=== PATIENT | female | born 1960 | race Caucasian/White ===

== ENCOUNTER → 2018-10-09 | Outpatient (CLI) | payer OTHER | LOC: M.RAD 15:10 | DX: Z12.31 Encounter for screening mammogram for malignant neoplasm of breast (principal) ==

== ENCOUNTER 2019-02-16 09:27 | Emergency (ER) | payer OTHER ==
[~2019-02-16] VITALS: Ht 172.7 cm; Wt 108.9 kg
[2019-02-16] MEDS ORDERED: DICLOFENAC SODI75 MG PO (09:44)
[2019-02-16] MEDS ORDERED: LEXAPRO 10 MG T10 M2 PO (09:44)
[2019-02-16] MEDS ORDERED: OMEPRAZOLE 20 M20 M1 PO (09:45)
[2019-02-16] MEDS ORDERED: AMITRIPTYLINE H10 M3 PO (09:45)
[2019-02-16] MEDS ORDERED: NORCO 5-325 TA1 EAC1 PO (12:10)
[2019-02-16] MEDS ORDERED: CYCLOBENZAPRINE5 MG PO (12:10)
[2019-02-16 12:37] VITALS: BP 181/106
[2019-03-12] MEDS ORDERED: FLEXERIL PO (10:44)
[2019-03-12] MEDS ORDERED: ZOVIRAX200 MG PO (14:49)
[2019-03-12] MEDS ORDERED: IBUPROFEN 800800 M1 PO (14:49)
== END 2019-02-16 12:41 | disposition home or self-care (01) ==
LOC: M.ERS 09:27
DX: S80.02XA Contusion of left knee, initial encounter (principal); M79.89 Other specified soft tissue disorders; M54.6 Pain in thoracic spine; M54.32 Sciatica, left side; F32.9 Major depressive disorder, single episode, unspecified; M19.90 Unspecified osteoarthritis, unspecified site; Z90.710 Acquired absence of both cervix and uterus; W01.0XXA Fall on same level from slipping, tripping and stumbling without subsequent striking against object, initial encounter; Y93.89 Activity, other specified; Y92.89 Other specified places as the place of occurrence of the external cause; Y99.8 Other external cause status

== ENCOUNTER → 2019-02-26 | Outpatient (CLI) | payer OTHER ==
[~2019-02-26] MED LIST: AMITRIPTYLINE H10 M3 PO; CYCLOBENZAPRINE5 MG PO; DICLOFENAC SODI75 MG PO; FLEXERIL PO; IBUPROFEN 800800 M1 PO; LEXAPRO 10 MG T10 M2 PO; NORCO 5-325 TA1 EAC1 PO; OMEPRAZOLE 20 M20 M1 PO; ZOVIRAX200 MG PO
== END ==
LOC: M.MRI 02-20 11:02
DX: M47.816 Spondylosis without myelopathy or radiculopathy, lumbar region (principal); M48.061 Spinal stenosis, lumbar region without neurogenic claudication; M54.6 Pain in thoracic spine; M54.42 Lumbago with sciatica, left side

== ENCOUNTER → 2019-03-12 | Outpatient (CLI) | payer OTHER ==
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
== END ==
LOC: M.PC 04:58
DX: M54.5 Low back pain (principal); R53.1 Weakness; F41.9 Anxiety disorder, unspecified; M19.90 Unspecified osteoarthritis, unspecified site; K21.9 Gastro-esophageal reflux disease without esophagitis; E66.9 Obesity, unspecified; Z90.49 Acquired absence of other specified parts of digestive tract; Z90.710 Acquired absence of both cervix and uterus

== ENCOUNTER → 2019-05-12 | Outpatient (CLI) | payer OTHER ==
--- NOTE | ~2019-05-12 | PAINCON ---
[address] [address] PAIN MANAGEMENT CONSULTATION Name: ROX CERVANTES Room: [facility] Michael#: [id number] Admission: 05/12/19 Attend Phys: Vira Godfrey MD Discharge: Date of : 58 Report #: [id number] THIS REPORT FOR: //name// CC: Tahmina Godfrey DATE OF SERVICE: 05/12/2019 CHIEF COMPLAINT: Low back pain. HISTORY: The patient is a 59-year-old female who has been referred to the pain clinic because of chronic back pain. She is experiencing pain in the lower back with pain that radiates down into her right foot. As you may recall, she has had surgery on her foot. This was in 03/2019. This was to the right foot. She had a cast on her foot. It was taken off yesterday. She has been wearing a boot for the last 4 weeks. Noticed that she has experienced more pain in the lower portion of her back. She has had some muscle spasms. She has used muscle relaxants to help with this discomfort. She is having some pain in her left foot with numbness and weakness. Rates her pain as a 7/10. Activities such as walking, standing, going from a sitting to a standing position, leaning and other positions can exacerbate her pain and discomfort. She underwent an epidural steroid injection and noted some benefits from this. She has returned today because of the continued pain and discomfort with a desire to undergo another epidural steroid injection. ALLERGIES: No known drug allergies. CURRENT MEDICATIONS: Lexapro 10 mg, Voltaren 75 mg b.i.d., amitriptyline 10 mg at bedtime and omeprazole 20 mg. The patient has used prednisone tablets and tapered them. She has used Flexeril in the past. She has also used Xanax. PAST MEDICAL HISTORY: Anxiety, arthritis, gastroesophageal reflux, and obesity. PAIN CLINIC ASSESSMENT AND PQRS: 1. The patient is not being treated for rheumatoid arthritis. 2. Vital Signs: Blood pressure 162/70, heart rate 81, respiratory rate 16, room air saturation 97%, temperature is 98.0, height 5 feet 8 inches, weight 246 pounds, BMI of 37.5. 3. Blood thinner. The patient is not on a blood thinning medication. 4. Hypertension. The patient is not being treated for hypertension. 5. The patient has not fallen since we saw her last. 6. Opioids. The patient denies use of opioid medications on a regular basis. 7. Pain score 7/10. PHYSICAL EXAMINATION: [place] [address] PAIN MANAGEMENT CONSULTATION Name: ROX CERVANTES [id number] Admission: 05/12/19 Attend Phys: Vira Godfrey MD Discharge: Date of : 58 Report #: [id number] GENERAL: The patient is a well-developed, well-nourished white female, appears her stated age. She is alert and oriented x 3. Somewhat obese. Speech is fluent. HEENT: Normocephalic, atraumatic. Extraocular eye muscles intact. Sclerae nonicteric. Mucous membranes are moist. NECK: Without adenopathy or JVD. HEART: Regular rate. ABDOMEN: Nontender, protuberant. MUSCULOSKELETAL: The patient without significant scoliosis, kyphosis or lordosis. The patient has some pain and discomfort in the left low back area near the paraspinous muscles. Has some discomfort with left and right lateral bending. Her pain today is in the L5-S1 dermatomal distribution in the low back area at L5-S1. RECOMMENDATIONS: We will proceed with an epidural steroid injection. We discussed treatment options with the patient. Risks and benefits of an epidural steroid injection were discussed. They include but are not limited to infection, worsening of pain, no improvement in pain, bleeding, nerve damage and the patient elects to proceed. PROCEDURE NOTE: The patient was taken to the procedure area. She was then assisted in getting on examination table. Her back was sterilely prepped with a Betadine solution. A 0.25% bupivacaine was infiltrated at the L5-S1 area. A 17-gauge Tuohy with loss of resistance technique was used to gain access to the epidural space at the L5-S1 area. Aspiration was negative. Total of 80 mg Depo-Medrol, 40 mg triamcinolone and 2 mL of 0.25% bupivacaine was injected. The patient tolerated the procedure well. A total of 8 seconds fluoroscopy time was used. The patient's pain decreased to 1/10 at the time of discharge. She will follow up in the future as needed. We would like to thank you for letting us participate in her care. We hope she continues to improve. By: [id number]. Kris Godfrey MD /juan
== END | disposition home or self-care (01) ==
LOC: M.PC 03-17 11:50
DX: M54.16 Radiculopathy, lumbar region (principal); G89.29 Other chronic pain; M19.90 Unspecified osteoarthritis, unspecified site; K21.9 Gastro-esophageal reflux disease without esophagitis; E66.09 Other obesity due to excess calories; F41.9 Anxiety disorder, unspecified; Z98.890 Other specified postprocedural states; Z79.899 Other long term (current) drug therapy; Z68.37 Body mass index [BMI] 37.0-37.9, adult

== ENCOUNTER → 2019-06-11 | Outpatient (CLI) | payer OTHER ==
[~2019-06-11] MED LIST changes: +ARTHROTEC 75 T1 EAC1 PO; +HYDROCODON-ACE1 EAC7 PO; +VITAMIN D400 UNIT PO
--- NOTE | ~2019-06-11 | PAINCON ---
[address] [address] PAIN MANAGEMENT CONSULTATION Name: ROX CERVANTES [id number] Admission: 06/11/19 Attend Phys: Vira Godfrey MD Discharge: Date of : 58 Report #: [id number] THIS REPORT FOR: //name// CC: Tahmina Godfrey DATE OF SERVICE: 06/11/2019 CHIEF COMPLAINT: Pain in the low back and down the legs. HISTORY: The patient is a 59-year-old female who has been seen in the pain clinic in the past because of chronic pain. She has undergone epidural steroid injections. She did glean benefit from this. She returns today because of pain, which is radiating down the posterior portion of her back and down into her leg. She feels that her pain today is similar to that which she had. She would like to proceed with epidural steroid injection to help decrease the pain and discomfort. ALLERGIES: No known drug allergies. CURRENT MEDICATIONS: Acyclovir 200 mg 5 times daily, amitriptyline 10 mg, , vitamin D 400 unit capsules, Flexeril 10 mg, diclofenac/misoprostol/Arthrotec 75 mg, Lexapro 10 mg, hydrocodone 5/325 p.r.n., ibuprofen 800 mg, and omeprazole 20 mg. PAIN CLINIC ASSESSMENT AND PQRS: 1. The patient is not being treated for rheumatoid arthritis. 2. Vital Signs: Blood pressure 170/80, heart rate 82, respiratory rate 16, room air saturation 97%. Weight 247 pounds, height 5 feet 8 inches, BMI is 37, temperature 97.3. 3. Pain intensity 5/10. 4. Fall history: The patient has not fallen in the last 3 months. 5. Hypertension. The patient is being treated for hypertension. 6. Opioids greater than 6 weeks. The patient receives her medication from her primary physician. 7. Risk assessment tool, low for opioid use. 8. Functional assessment tool. 9. Recreational drug use: The patient denies. 10. Tobacco: The patient denies use of tobacco. 11. Alcohol. The patient denies use of alcoholic beverages. PHYSICAL EXAMINATION: GENERAL: The patient is a well-developed, well-nourished, somewhat obese white female, appears her stated age. She is alert and oriented x 3. Her affect is appropriate. Speech is fluent. HEENT: Normocephalic, atraumatic. Extraocular [place] [address] PAIN MANAGEMENT CONSULTATION Name: ROX CERVANTES Room: [facility]#: [id number] Admission: 06/11/19 Attend Phys: Vira Godfrey MD Discharge: Date of : 58 Report #: [id number] nonicteric. Mucous membranes are moist. NECK: Without adenopathy or JVD. HEART: Regular rate. ABDOMEN: Nontender, protuberant. MUSCULOSKELETAL: The patient without significant scoliosis, kyphosis or lordosis. The patient has some pain and discomfort in the right lower extremity. Has some pain in her foot. Has pain score of 5/10. The patient has pain and discomfort in the L5-S1 dermatomal distribution today. IMPRESSION: 1. Lumbar radiculopathy with L5-S1 dermatomal distribution with pain. Positive straight leg raise. 2. Degenerative joint disease. 3. Emotional problems. 4. Stomach or GI problems. 5. Colon problems. 6. History of ulcers. RECOMMENDATIONS: We discussed treatment options with the patient. Risks and benefits of an epidural steroid injection in the low back area to help with the L5-S1 dermatomal distribution of pain has been discussed. Possible complications of the procedure, which could include but are not limited to infection, worsening pain, no improvement in pain and the patient elects to proceed. PROCEDURE NOTE: The patient was taken to the procedure area. She was then assisted in getting on examination table. Anterior, posterior as well as lateral viewing were implemented. At the L5-S1 area, 0.25% bupivacaine was infiltrated. A 17-gauge Tuohy with loss of resistance technique was used to gain access at the L5-S1 area. There was no CSF, heme or paresthesia. Total of 80 mg Depo-Medrol, 40 mg triamcinolone and 2 mL of 0.25% bupivacaine was injected. The patient tolerated the procedure well. There were no complications. She was provided hydrocodone 5/325, total of 21 tablets to help with pain post-injection. We would like to thank you for letting us participate in her care. We hope she continues to improve. By: [id number]. Kris Godfrey MD /HAYLEE
== END | disposition home or self-care (01) ==
LOC: M.PC 09:18
DX: M54.16 Radiculopathy, lumbar region (principal); G89.29 Other chronic pain; M19.90 Unspecified osteoarthritis, unspecified site; Z98.890 Other specified postprocedural states; Z79.899 Other long term (current) drug therapy; Z79.891 Long term (current) use of opiate analgesic; Z87.19 Personal history of other diseases of the digestive system

== ENCOUNTER 2019-09-05 16:47 | Emergency (ER) | payer OTHER ==
[~2019-09-05] VITALS: Ht 172.7 cm; Wt 113.4 kg
[2019-09-05 17:26] VITALS: BP 166/92
== END 2019-09-05 17:27 | disposition home or self-care (01) ==
LOC: M.ERS 16:47
DX: S63.283A Dislocation of proximal interphalangeal joint of left middle finger, initial encounter (principal); M19.90 Unspecified osteoarthritis, unspecified site; F32.9 Major depressive disorder, single episode, unspecified; Z90.49 Acquired absence of other specified parts of digestive tract; Z90.710 Acquired absence of both cervix and uterus; W01.0XXA Fall on same level from slipping, tripping and stumbling without subsequent striking against object, initial encounter; Y93.89 Activity, other specified; Y92.89 Other specified places as the place of occurrence of the external cause; Y99.8 Other external cause status

== ENCOUNTER → 2021-06-19 | Outpatient (CLI) | payer BC | LOC: M.LAB 10:28 | PROVIDERS: ATTEND Anesthesiology | DX: Z01.812 Encounter for preprocedural laboratory examination (principal); E87.6 Hypokalemia; Z20.822 Contact with and (suspected) exposure to COVID-19 ==